=== PATIENT | male | born 1960 | race Caucasian/White ===

== ENCOUNTER 2018-04-01 15:19 | Emergency (ER) | payer OTHER ==
[2018-04-01] MEDS: ACETAMINOPHEN 325 MG TAB PO (16:18)
== END 2018-04-01 17:04 | disposition home or self-care (01) ==
LOC: FTE 15:19
DX: S42.401A Unspecified fracture of lower end of right humerus, initial encounter for closed fracture (principal); F17.210 Nicotine dependence, cigarettes, uncomplicated; W18.30XA Fall on same level, unspecified, initial encounter; Y92.89 Other specified places as the place of occurrence of the external cause
CPT/HCPCS: 29105; 73080-RT; 73090-RT; 99283-25